=== PATIENT | male | born 1960 | race Caucasian/White ===

== ENCOUNTER 2017-06-10 21:20 | Emergency (ER) | payer OTHER ==
[2017-06-10] MEDS ORDERED: LIDOCAINE WITH 8.4% SOD BICARB 3 ML DISP.SYRIN. (21:51)
[2017-06-10] MEDS: LIDOCAINE WITH 8.4% SOD BICARB 3 ML DISP.SYRIN. INJ (22:04)
[2017-06-10] MEDS: DIPHTH,PERTUSS(ACELL),TET TOX 0.5 ML DISP.SYRIN. VAX IM (22:15)
== END 2017-06-10 22:08 | disposition home or self-care (01) ==
LOC: ER 21:20
DX: L02.413 Cutaneous abscess of right upper limb (principal); Z88.0 Allergy status to penicillin; Z88.1 Allergy status to other antibiotic agents
CPT/HCPCS: 10060; 90471; 90715; 99283-25